=== PATIENT | male | born 1935 | race Caucasian/White ===

== ENCOUNTER 2016-04-23 05:16 | Day surgery (SDC) | payer MEDICARE ==
[~2016-04-23] VITALS: Ht 167.6 cm; Wt 92.5 kg
[2016-04-23] VITALS (17 sets, daily range): BP systolic 108–159; BP diastolic 61–92; PULSE 60–87; RESP 12–18; O2SAT 92–99
[~2016-04-23 05:16] MED LIST: ASPI-973 PO; CITA20TA PO; CYA1000I IM; GABA-502 PO; GLBR5T PO; LOSA50TA37 PO; LOVA10TA PO; Lactated Ringer's 1,000 ML IV SCH; METO-272 PO; MULT-1073 PO; POTA8CAP10 PO; PROP150T PO; TIOT18CA3 IH; VITA150T PO; WARF1TAB6 PO
[2016-04-23] MEDS ORDERED: fentaNYL-PF 50 mCg/mL 2 mL Inj ONE (05:17)
[2016-04-23] MEDS ORDERED: Rocuronium 10 mg/mL 5 mL Inj ONE (05:17)
[2016-04-23] MEDS ORDERED: Glycopyrrolate 0.2 mg/mL 5 mL Inj ONE (05:17)
[2016-04-23] MEDS ORDERED: Ketamine 10 mg/mL 20 mL Inj ONE (05:17)
[2016-04-23] MEDS ORDERED: Dexamethasone 4 mg/mL Inj ONE (05:17)
[2016-04-23] MEDS ORDERED: EPHEDrine/NS 5 mg/mL 5 mL Syringe ONE (05:17)
[2016-04-23] MEDS ORDERED: Ondansetron 2 mg/mL 2 mL Inj ONE (05:17)
[2016-04-23] MEDS ORDERED: Propofol 10,000 mCg/mL 20 mL Inj ONE (05:17)
[2016-04-23] MEDS ORDERED: Phenylephrine/NS 100 mCg/mL 10 mL Syringe IVPUSH ONE (05:17)
[2016-04-23] MEDS ORDERED: Neostigmine 1 mg/mL 5 mL Inj ONE (05:17)
[2016-04-23] MEDS ORDERED: Protamine Sulfate 10 mg/mL 5 mL Inj ONE ×2 (05:17→11:12)
[2016-04-23] MEDS ORDERED: Benzoc-Butamben-Tetraca Spray 20 Gm Spray TOPICAL PRN (06:30)
[2016-04-23 06:47] LABS: INR 2.62 ratio
[2016-04-23] MEDS ORDERED: FUR20 PO (06:58)
[2016-04-23] MEDS ORDERED: METO50TA3 PO (06:58)
[2016-04-23 07:01] LABS: BASOPHILS % (AUTO) 0.7 % (0-3); EOSINOPHILS % (AUTO) 3.7 % (0-5); MONOCYTES % (AUTO) 14.3 % (4-12); Mean Corpuscular Hemoglobin 29.8 pg (27.0-35.0); Mean Corpuscular Volume 87.6 fL (81-100); NEUTROPHILS % (AUTO) 46.7 % (40-74); Platelet Count 205 bil/L (150-400)
[2016-04-23] MEDS ORDERED: Heparin 1,000 Units/500 mL NS Premix IV ONE (07:42)
[2016-04-23] MEDS ORDERED: Heparin 1,000 Unit/mL 10 mL Inj ONE ×3 (07:42→09:32)
[2016-04-23] MEDS ORDERED: 0.9% Sodium Chloride 3,000 ML ONE (07:42)
--- NOTE | 2016-04-23 07:49 | PCM.HPANE ---
Patient Data Date of Service: Apr 23, 2016 Surgeon Admitting Provider: Attending Provider:Ariel Jenkins MD Primary Care Physician:Braeden Anderson Other Provider:aJycee Gomes Anesthesia Reason for Visit Paroxysmal Atrial Fibrillation Ht/WT & BMI Height (Feet): 5 Height (Inches): 6.00 Weight (Kilograms): 92.500 Body Mass Index 32.77 Allergies Coded Allergies: No Known Allergies (Verified Allergy, Mild, 02/29/16) Past Anesthesia History Anesthesia History: Denies:: Anesthesia Reactions Diabetes History Hx Diabetes?: Yes (type 2) MRSA MRSA: No Medications Hypertension Medication: Yes Home Meds Incl Beta Mirtha: Yes Date Beta Mirtha Taken: Apr 22, 2016 Time Beta Mirtha Taken: 18:00 Previous Beta Mirtha Dose >24: Previous Dose <24 Hours Reported Medications Metoprolol Tartrate 50 Mg Cupdde45 Mg PO BID 30 Days Ref 0 04/23/16 Furosemide 20 Mg Tab20 Mg PO DAILY 30 Days Ref 0 04/23/16 Warfarin Sodium 1 Mg Tablet1 Mg PO DAILY 30 Days Ref 0 04/22/16 Propafenone 150 Mg Idaesj797 Mg PO Q8H 02/29/16 Cyanocobalamin (Cyanocobalamin Injection)1,000 Mcg/1 Ml Vial1,000 Mcg IM Monthly takes the or of the month 02/28/16 Citalopram Hydrobromide (Celexa)20 Mg Dufexa42 Mg PO DAILY Ref 0 12/02/15 Vitamin B Complex & Vit C No.4 (Super B Complex)150 Mg Awchdu187 Mg PO DAILY 05/10/15 Aspirin 81 Mg Dtzapj69 Mg PO DAILY Ref 0 05/10/15 Tiotropium [place] (Spiriva)18 Mcg Cap.w.dev18 Mcg IH DAILY #1 PKG Ref 0 05/10/15 Gabapentin 300 Mg Ydxqqrs185 PO BID Ref 0 05/10/15 Losartan Potassium 50 Mg Mafnba86 Mg PO BID 05/10/15 Potassium Chloride 8 Meq Capsule.er8 Meq PO DAILY 30 Days Ref 0 TAKE WITH FOOD 12/28/13 Glyburide 5 Mg Tab2.5 Mg PO AM 30 Days Ref 0 12/28/13 Multivits-Min/FA/Lycopene/Lut (Centrum Silver Tablet)1 Each Tablet1 Each PO DAILY 12/27/13 Lovastatin 10 Mg Aqkozo14 Mg PO QPM #30 TABLET Ref 0 12/27/13 Discontinued Reported Medications Warfarin Sodium 1 Mg Tablet0.5 Mg PO thursday 30 Days Ref 0 04/22/16 Metoprolol Succinate ER 50 Mg Tab.er.24h75 Mg PO DAILY Ref 0 02/29/16 Warfarin Sodium 2 Mg Tablet2 Mg PO DAILY 30 Days Ref 0 02/29/16 History History of ENT Problems?: Yes HEENT History: Positive for:: Cataracts (cataract surgery) Denies:: Dysphagia Sinus Problem Hx of Heart Problems?: Yes Cardiovascular History: Positive for:: Hypertension Irregular Heartbeat (atrial fibrillation) Denies:: Cardiac Surgery (cardioversion) Chest Pain Congestive Heart Failure Edema Heart Murmur Pacemaker Thrombophlebitis Other Cardiac History: patient here today for PATRICIA/atrial fibrillation ablation with Dr Jenkins Other History/Comments Does not exercise much, sounds like he can do 4 mets; normal systolic fxn, negative lexiscan Hx of Respiratory Problem?: Yes Respiratory History: Positive for:: COPD Dyspnea (with atrial fibrillation) Denies:: Asthma Chest Surgery Emphysema Hemoptysis Pneumonia Tuberculosis Other History/Comment breathing well today, not on o2 Hx Neurologic Problems?: No Hx of GI Problems?: No Gastrointestinal History: Positive for:: Gastroesphageal Reflux Heartburn Denies:: Diverticulitis Gastrointestinal Bleeding Hepatitis Hiatal Hernia Rectal Bleeding Hx of Problems?: Yes Genitourinary History: Denies:: HX of Hemodialysis Kidney Stones Urinary Tract Infection HX of Peritoneal Dialysis: No Male Hx: Positive for:: Prostate Problems Denies:: Scrotal Mass Testicular Surgery Hx Musculoskeletal Problems?: Yes Musculoskeletal History: Positive for:: Back Injury Joint Replacement (R knee and R shoulder) Denies:: Musculoskeletal Trauma Hx of Psycho/Social Problems?: Yes Psycho Social History: Positive for:: Anxiety Denies:: Bipolar Disorder Hx Depression Suicide Attempt Hx Surgeries?: Yes (, cataracts, tonsillectomy, back, RIGHT KNEE, RIGHT SHOULDER) Hx Any Other Health Problems?: Yes Other History: Positive for:: Hospitalization (surgeries, COPD, ) Denies:: Cancer Endocrine Disease Thyroid Disease History Blood Transfusions: Positive for:: Accept Blood Products? Denies:: Blood Transfusions Hx Diabetes: Yes (type 2) Hx Alcohol Use: NoHx Substance Use: No Smoking Status: Former Smoker Have You Smoked inLast 12 mo: No Stop/Bang Treated for Sleep Apnea?: No Do You Have a CPAP Machine?: No S-Snoring: Do You Snore Loudly: Yes T-Tired: feel tired, fatigued: Yes O-Obsered: Observed not breath: No P-Blood Pressure: treated: Yes B- Body Mass Index > 35 kg/m2: No A- Age over 50: Yes N- Neck Large Circumference: Yes G- Gender Male: Yes JOSHUA Risk Assessment: High Risk, =/>3 Yes JOSHUA Category 2: Yes Risk Assessment Category Category 1A: Patient has history of documented sleep apnea, and HAS NOT received any narcotic, sedative or anesthesia administration during this stay. Category 1B: Patient has history of documented sleep apnea, and HAS received any narcotic , sedative or anesthesia administration during this stay Category 2: Patient has SUSPECTED Obstructive Sleep Apnea, and HAS received any narcotic , sedative or anesthesia administration during this stay. Category 3: Patient has SUSPECTED Obstructive Sleep Apnea and HAS NOT received narcotic, sedative or anesthesia administration during this stay. Category 4: Outpatient in Procedural Areas with known sleep apnea or who screen positive for High Risk via the STOP/BANG questionnaire. Exam Exam Vital Signs Vital Signs Date Time Temp Pulse Resp B/P Pulse Ox O2 Delivery O2 Flow Rate FiO2 04/23/16 06:43 36.7 66 15 125/75 99 Room Air General Appearance: Alert, Oriented X3, Cooperative, No Acute Distress HEENT/AIRWAY: MP 4, Neck Movement (full rom), Mouth Opening (small), Other ( thick neck) Lungs: Clear to Auscultation, Normal Air Movement Heart: Exam Unremarkable, Regular Rate/Rhythm, No Murmurs/Rubs/Gallops Meds/Labs/Diagnostics Labs Test 04/23/16 06:15 White Blood Count 6.0th/mm3 (3.8-10.1) Red Blood Count 5.33mil/mm3 (4.40-5.80) Hemoglobin 15.9g/dL (13.8-17.2) Hematocrit 46.7% (41.0-50.0) Mean Corpuscular Volume 87.6fL (81-100) Mean Corpuscular Hemoglobin 29.8pg (27.0-35.0) Mean Corpuscular Hemoglobin Concent 34.0% (32.0-37.0) Red Cell Distribution Width 13.6% (12.3-15.4) Platelet Count 205bil/L (150-400) Neutrophils (%) (Auto) 46.7% (40-74) Lymphocytes (%) (Auto) 34.3% (14-46) Monocytes (%) (Auto) 14.3% (4-12) Eosinophils (%) (Auto) 3.7% (0-5) Basophils (%) (Auto) 0.7% (0-3) Prothrombin Time 28.6sec (8.1-12.5) Prothromb Time International Ratio 2.62ratio Sodium Level 139mEq/L (134-144) Potassium Level 4.4mEq/L (3.5-5.2) Chloride Level 99mEq/L (97-108) Carbon Dioxide Level 25mmol/L (18-29) Blood Urea Nitrogen 18mg/dL (8-27) Creatinine 1.17mg/dL (0.76-1.27) Estimat Glomerular Filtration Rate 63mL/min (>59) Glucose Level 141mg/dL (60-99) Calcium Level 8.4mg/dL (8.5-10.1) Plan Impression Patient chart reviewed, patient interviewed and anesthestic plan with risks, benefits, and alternatives discussed, and informed consent obtained. NPO Status: >8 ASA Physical Status: ASA3 Severe Disease Anesthetic Support Modalities: Evart Scope, Arterial Line Anesthetic Plan: GA Bene/Risks/Altern/Consents: Yes HP Complete Prior to Induction: Yes Emir Jamison MD Apr 23, 2016 07:49
[2016-04-23] MEDS ORDERED: 0.9% Sodium Chloride 1,000 ML ONE ×2 (08:17→08:40)
[2016-04-23] MEDS ORDERED: Heparin 25,000 Unit/500 mL 0.45% NS Premix IV ONE (08:17)
[2016-04-23] MEDS ORDERED: HYDROcodone-APAP 5-325 mg Tablet PO PRN (11:25)
[2016-04-23] MEDS ORDERED: Ondansetron 2 mg/mL 2 mL Inj IVPUSH PRN (11:25)
--- NOTE | 2016-04-23 12:09 | DRSVH ---
[facility] [address] [place] [address] Echocardiogram Report Name: FLOYD HERNANDEZ te: 04/23/2016 [facility] Exam Location: [facility] Gender: Male : 1935 Age: 81 yrs BP: 177/111 mmHg Reason For Study: Atrial fibrillation Ordering Physician: Performed By: Lucille Hutchins Interpretation Summary No thrombus is detected in the left atrial appendage. There was a prominant ridge if atrial tissue at the midpoint of the NORMA that was carefully evaluated. This was not thought to be a thrombus and the prior CT scan of the LA showed a similar ridge of tissue correlating well the the PATRICIA. The thickening of interatrial septum suggests lipomatous hypertrophy. There is mild mitral regurgitation. Mild atherosclerotic plaque(s) in the descending aorta. Mild atherosclerotic plaque(s) in the aortic arch. No other echocardiographic abnormalities seen. Procedure: Informed consent for Transesophageal Echocardiogram, and use of a contrast agent as needed, was obtained prior to the procedure. The patient was brought to the cardiac catheterization lab in a fasting state. Sedation was managed by anesthesiologist; see anesthesiology notes for details. A multifrequency, multiplane transesopheageal echocardiographic endoscope was inserted and manipulated in the standard fashion to achieve multiplane views. The transesophageal probe was passed without difficulty. The patient's vital signs, including blood pressure, heart rate, pulse oximetry and cardiac rhythm were monitored throughout the procedure and remained stable. A 2D transesophageal echocardiogram with spectral and color flow Doppler was performed. There were no complications. Left Ventricle: The left ventricle is grossly normal size. Left ventricular systolic function is probably normal. Right Ventricle: The right ventricle is grossly normal size. The right ventricular systolic function is normal. Atria: No thrombus is detected in the left atrial appendage. The left atrial size is normal. There was a prominant ridge if atrial tissue at the midpoint of the NORMA that was carefully evaluated. This was not thought to be a thrombus and the prior CT scan of the LA showed a similar ridge of tissue correlating well the the PATRICIA. The right atrium is normal in size. The thickening of interatrial septum suggests lipomatous hypertrophy. Mitral Valve: There is mild mitral regurgitation. Aortic Valve: The aortic valve is trileaflet. The aortic valve opens well. The aortic valve is normal in structure and function. Tricuspid Valve: The tricuspid valve is not well visualized, but is grossly normal. Pulmonic Valve: The pulmonic valve is not well visualized. Great Vessels: Mild atherosclerotic plaque(s) in the descending aorta. Mild atherosclerotic plaque(s) in the aortic arch. Pericardium/ Pleura: There is no pericardial effusion. Reading Physician:12:08 PM
--- NOTE | 2016-04-23 14:14 | PROCED ---
[address] [address] PROCEDURE NOTE PATIENT: FLOYD HERNANDEZ : 1935 MR#: [id number] ADMIT: 04/23/2016 JOB ID: [id number] DATE OF SERVICE: 04/23/2016 PREOPERATIVE DIAGNOSIS(ES): Paroxysmal drug refractory atrial fibrillation. POSTOPERATIVE DIAGNOSIS(ES): Paroxysmal drug refractory atrial fibrillation. PROCEDURES PERFORMED: 1. Comprehensive electrophysiology study. 2. Three-dimensional electroanatomical mapping using the CARTO 3 system. 3. Atrial fibrillation ablation with pulmonary vein isolation. 4. Transseptal puncture x2. 5. Intracardiac echocardiography. 6. Barium esophagram. 7. Cardioversion. 8. Fluoroscopy. SURGEON: Ariel Jenkins MD, electrophysiology attending. ASSISTANTS: Haresh Steele, Brooke Burch, Eladio Queen PA-C. ANESTHESIA: General endotracheal anesthesia was undertaken for this case. INDICATION: The patient is a pleasant 81-year-old man with highly symptomatic paroxysmal drug refractory atrial fibrillation. After discussion of risks and benefits of catheter-based mapping and ablation, he opted to proceed. PROCEDURAL DESCRIPTION: Following informed signed consent, the patient was taken to the procedure room in a fasting, nonsedated state, where he was prepped and draped in the usual sterile fashion. He underwent a preprocedural transesophageal echocardiogram by Dr. Mckeon, confirming lack of intracardiac thrombus. Please see separate dictated report for the details of that procedure. The bilateral groins were then infiltrated with 1% lidocaine. Then, using modified Seldinger technique, two 8-Iraqi sheaths were inserted into the right femoral vein. A 7 and a 10.5-Iraqi sheath were inserted into the left femoral vein. Under fluoroscopic guidance, a deflectable decapolar catheter was advanced in the coronary sinus with the most proximal pole at the os of the sinus. An intracardiac echocardiography probe was advanced to the RV outflow tract and used to visualize the pericardial space. A trivial physiologic effusion was noted. The ICE probe was pulled back into the right atrium and used to visualize the interatrial septum in assistance of transseptal puncture. Two transseptal punctures were performed in an identical fashion, each with a short 8-Iraqi sheath in the right groin which were exchanged over a long wire for a Nunez sheath dilator and Cornelius Brockenbrough needle. The entire system was used to engage thee interatrial septum. Then, under pressure fluoroscopic and ICE guidance, the septum was traversed twice to deploy the two Nunez sheaths into the left atrium. Following with first and preceding with second transseptal puncture, the patient was heparinized for a goal ACT of 350 to 400 seconds. A resurvey of the pericardial space showed no evidence of change in the trivial effusion. Through the two Nunez sheaths an F-curve irrigated SmartTouch ablation catheter was advanced, as was a 20-pole PentaRay catheter. The three-dimensional electroanatomical map of the left atrium and pulmonary veins was created using CARTO 3 system. The patient has a common left pulmonary vein ostium and two separate ostia for the right-sided pulmonary veins. A barium esophagram was performed delineating the course of the esophagus closest to the posterior aspect of the left pulmonary common vein. Circumferential lesions were placed around the ostia of the veins achieving entrance and exit blocks in all pulmonary veins. Following entrance block into the left pulmonary vein, the patient was cardioverted with a 200 joule synchronized shock to convert him to sinus rhythm. Exit block was confirmed from that vein. Entrance and exit blocks were confirmed from the two right-sided veins. We then left the left atrium, re-surveyed the pericardial space showing no evidence of change in the tiny effusion and reversed the patient's heparin with protamine. During the course of this study, we did complete a comprehensive electrophysiology study with right atrial pacing recording, right ventricular pacing recording, His bundle pacing recording and left atrial pacing recording. All catheters and sheaths were removed. Manual pressure was held for hemostasis. The patient was transferred to the [facility] for monitoring and bedrest. COMPLICATIONS: None. ESTIMATED BLOOD LOSS: 20-30 cc. FINDINGS: 1. Baseline rhythm is atrial fibrillation. Post cardioversion and ablation, he is in sinus rhythm with a RR interval 1042 msec, NV 199 msec, QRS 82 msec, QTc 453 msec. 2. Intracardiac intervals, atrial 103 msec, HV 52 msec. 3. Retrograde conduction, no VA conduction was seen. 4. Antegrade conduction, AV Wenckebach at 410 msec. 5. Atrial fibrillation ablation with pulmonary vein isolation showing entrance and exit blocks as described above. IMPRESSION: Successful pulmonary vein isolation procedure for paroxysmal drug refractory atrial fibrillation. PLAN: 1. Bedrest x4 hours. 2. Continue warfarin, beta blockade and propafenone. 3. Protonix 40 mg p.o. daily for 1 month. 4. Monitoring overnight. 5. Follow up with Eladio Queen PA-C in 3-4 weeks. 6. Follow up with me in three months. ATTENDING STATEMENT: Ariel Jenkins MD, electrophysiology attending, was present for and supervised/performed all aspects of this procedure.
--- NOTE | 2016-04-23 15:58 | PCM.ANEP1 ---
Post Anesthesia Phase 1 PACU Phase 1 Assessment Date of Service: Apr 23, 2016 Vital Signs Vital Signs Date Time Temp Pulse Resp B/P Pulse Ox O2 Delivery O2 Flow Rate FiO2 04/23/16 15:30 69 18 144/79 Room Air 04/23/16 14:25 65 13 112/76 92 Room Air 04/23/16 13:30 63 15 120/65 94 Nasal Cannula 3.00 04/23/16 13:15 63 16 112/65 93 Nasal Cannula 3.00 04/23/16 12:58 63 13 118/61 92 Nasal Cannula 4.00 04/23/16 12:45 63 12 108/69 92 Nasal Cannula 4.00 04/23/16 12:35 64 15 94 Nasal Cannula 4.00 04/23/16 12:30 64 15 119/67 94 Nasal Cannula 5.00 04/23/16 12:25 64 15 124/81 93 Oxy Mask 6.00 04/23/16 12:20 64 15 124/81 93 Oxy Mask 6.00 04/23/16 12:08 67 13 134/81 93 Oxy Mask 6.00 Anesthetic Administered: GA Level of Alertness: Awake, talking SNYDER's with Equal Strength: Yes Pain: No Nausea or Vomiting: No Oxygen Delivery: OxyMask Lungs: Clear to Auscultation, Normal Air Movement Emir Jamison MD Apr 23, 2016 15:58
--- NOTE | 2016-04-23 15:59 | PCM.ANEP2 ---
Post Anesthesia Evaluation ASA/CMS Post Anesthesia Date of Service: Apr 23, 2016 VS in Patient's Normal Range?: Yes Resp Stable; Airway Patent?: Yes CV Function & Hydration Stable: Yes Mental Status Recovered?: Yes Pain control Satisfactory?: Yes N/V Control Satisfactory?: Yes Emir Jamison MD Apr 23, 2016 15:59
--- NOTE | 2016-04-23 16:07 | NUR ---
Patent's bunch catheter removed as patient is now off bedrest.Pt assissted immediately to bathroom for void.Bilateral groin sites intyact.Patient unable to void in bathrooom but states that he is comfortable, does not have the continued urge to void.
--- NOTE | 2016-04-23 16:23 | NUR ---
report to Lizbeth Orr R.N, Patient is sitting up on side of bed.Bilateral groin sites intact, he remains in sinus rhythm.Patient informed that his next few voids may be blood tinged as there was some blood noted at the tip of the bunch catheter and at meatus upon removing.
--- NOTE | 2016-04-23 18:13 | PCM.CONPHA ---
Subjective Date of Service: Apr 23, 2016 Requesting Provider: Ariel Jenkins MD Reason for Pharmacy Consult: Anticoagulation Management Objective Vital Signs Date Time Temp Pulse Resp B/P Pulse Ox O2 Delivery O2 Flow Rate FiO2 04/23/16 16:49 80 04/23/16 16:38 36.6 69 16 158/80 94 Room Air 04/23/16 16:13 69 12 135/69 96 Room Air 04/23/16 15:58 OxyMask 04/23/16 15:30 69 18 144/79 Room Air 04/23/16 14:25 65 13 112/76 92 Room Air 04/23/16 13:30 63 15 120/65 94 Nasal Cannula 3.00 04/23/16 13:15 63 16 112/65 93 Nasal Cannula 3.00 04/23/16 12:58 63 13 118/61 92 Nasal Cannula 4.00 04/23/16 12:45 63 12 108/69 92 Nasal Cannula 4.00 04/23/16 12:35 64 15 94 Nasal Cannula 4.00 04/23/16 12:30 64 15 119/67 94 Nasal Cannula 5.00 04/23/16 12:25 64 15 124/81 93 Oxy Mask 6.00 04/23/16 12:20 64 15 124/81 93 Oxy Mask 6.00 04/23/16 12:08 67 13 134/81 93 Oxy Mask 6.00 04/23/16 06:43 36.7 66 15 125/75 99 Room Air Weight (Kilograms): 92.500 Height (Feet): 5 Height (Inches): 6.00 Test 04/23/16 06:15 White Blood Count 6.0th/mm3 (3.8-10.1) Red Blood Count 5.33mil/mm3 (4.40-5.80) Hemoglobin 15.9g/dL (13.8-17.2) Hematocrit 46.7% (41.0-50.0) Mean Corpuscular Volume 87.6fL (81-100) Mean Corpuscular Hemoglobin 29.8pg (27.0-35.0) Mean Corpuscular Hemoglobin Concent 34.0% (32.0-37.0) Red Cell Distribution Width 13.6% (12.3-15.4) Platelet Count 205bil/L (150-400) Neutrophils (%) (Auto) 46.7% (40-74) Lymphocytes (%) (Auto) 34.3% (14-46) Monocytes (%) (Auto) 14.3% (4-12) Eosinophils (%) (Auto) 3.7% (0-5) Basophils (%) (Auto) 0.7% (0-3) Prothrombin Time 28.6sec (8.1-12.5) Prothromb Time International Ratio 2.62ratio Sodium Level 139mEq/L (134-144) Potassium Level 4.4mEq/L (3.5-5.2) Chloride Level 99mEq/L (97-108) Carbon Dioxide Level 25mmol/L (18-29) Blood Urea Nitrogen 18mg/dL (8-27) Creatinine 1.17mg/dL (0.76-1.27) Estimat Glomerular Filtration Rate 63mL/min (>59) Glucose Level 141mg/dL (60-99) Calcium Level 8.4mg/dL (8.5-10.1) Assessment/Plan Assessment/Plan PREOPERATIVE DIAGNOSIS(ES): Paroxysmal drug refractory atrial fibrillation. POSTOPERATIVE DIAGNOSIS(ES): Paroxysmal drug refractory atrial fibrillation. PROCEDURES PERFORMED: 1. Comprehensive electrophysiology study. 2. Three-dimensional electroanatomical mapping using the CARTO 3 system. 3. Atrial fibrillation ablation with pulmonary vein isolation. 4. Transseptal puncture x2. 5. Intracardiac echocardiography. 6. Barium esophagram. 7. Cardioversion. 8. Fluoroscopy. Warfarin dosing per pharmacy Indication for warfarin therapy: atrial fibrillation INR goal: 2-3 Home dose: warfarin 1 mg daily per med rec. INR today: 2.62 INR is therapeutic today. Give home dose of warfarin 1 mg PO once this evening. Pharmacy to continue to monitor and dose warfarin daily. Thank you, Jimena Navarro Pharmacist Jimena Navarro Apr 23, 2016 18:13
[2016-04-24 03:49] VITALS: BP 146/79; PULSE 80; RESP 18; O2SAT 93
[2016-04-24 04:16] LABS: APPEARANCE,URINE CLOUDY (CLEAR,HAZY); COLOR,URINE YELLOW (YELLOW); OCCULT BLOOD,URINE LARGE (NEGATIVE)
[2016-04-24 04:17] LABS: UROBILINOGEN,URINE NORMAL (NORMAL)
--- NOTE | 2016-04-24 05:07 | NUR ---
Groin Sites Bilateral groin sites C/D/I to assessment; slight bruising to areas, nontender to palpation, no hematoma formation. Bandaids intact. Pt denies pain, dyspnea, or nausea. Encouraged to call for assistance upon first ambulation, pt states "I haven't gotten up at all yet, but I'm always really careful when I do. I stand at the edge of the bed for a couple minutes until I'm steady, because I know I can get dizzy. But I'm feeling a lot better after this procedure." VSS. Tele SR 70s.
[2016-04-24 06:06] VITALS: PULSE 73
[2016-04-24] MEDS ORDERED: Pantoprazole 40 mg ER24 Tablet PO SCH (06:30)
[2016-04-24 08:00] VITALS: PULSE 68
[2016-04-24] MEDS ORDERED: Tiotropium 18mcg/Cap 5 Capsule Inhaler Kit INHALATION SCH (08:30)
[2016-04-24] MEDS ORDERED: Vitamin B Complex/Vit C Tablet PO SCH (08:30)
--- NOTE | 2016-04-24 08:37 | PCM.DIMED ---
Discharge Instructions Date of Service Apr 24, 2016 Dates of Hospitalization Discharge Diagnosis Discharge Diagnosis Paroxysmal Atrial fibrillation Diabetes Hypertension COPD Diet Diabetic Activity Other (To prevent bleeding, do not lift, push or pull more than 10 lbs for 5 days. To prevent infection, do not sit in a bath tub, hot tub or pool for 5 days.) Call your provider Fever or Chills, Bleeding, Excessive diarrhea, Weakness (unilateral) Patient Instructions Mid-level Provider (F9): Eladio Queen PA-C Follow-up with Mid-level in: 4 weeks Eladio Queen PA-C Apr 24, 2016 08:37
[2016-04-24] MEDS ORDERED: PANT40TA3 PO (08:47)
[2016-04-24 09:31] VITALS: BP 149/84; PULSE 66; RESP 16; O2SAT 96
--- NOTE | 2016-04-24 09:41 | DIS ---
[address] [address] DISCHARGE SUMMARY PATIENT: FLOYD HERNANDEZ : 1935 MR#: [id number] ADMIT: 04/23/2016 JOB ID: [id number] DIS: 04/24/2016 REASON FOR ADMISSION: Atrial fibrillation ablation. CHIEF COMPLAINT: Extreme fatigue and dyspnea with minimal exertion. BRIEF HISTORY: The patient is a pleasant 80-year-old man with preserved biventricular function and no significant mitral valve regurgitation but who has some systemic hypertension, diabetes and persistent atrial fibrillation. He was started on warfarin for anticoagulation and propafenone for antiarrhythmic and underwent a cardioversion but reverted to atrial fibrillation. He was again extremely fatigued and somnolent during the day and had exertional dyspnea with minimal activity when in atrial fibrillation. He was admitted for an ablation procedure. COURSE IN HOSPITAL: The patient was admitted through the [facility] and taken to the concrete plant laborer, where he was first placed under general anesthesia by the anesthesiologist. He then had a PATRICIA which showed no evidence of left atrial thrombus and then the atrial fibrillation ablation procedure was undertaken and completed without incident. After the femoral sheaths were removed, he was awakened from anesthesia and then transferred back to the [facility] for recovery from sedation. After that he was transferred up to the [facility] for continuous telemetry and overnight care. The Pina catheter was removed and he was able to void his bladder. He did well overnight and in the morning was in sinus rhythm and feeling well. He reports being so much more awake when in sinus rhythm. He has no chest discomfort, no dyspnea and no instability on standing. The groin sites were closed and dry and there was minimal hematoma or ecchymosis on either side. DISPOSITION: The patient was discharged home in good condition with a follow up appointment at the [facility] office in one month. To prevent bleeding, he was asked not to lift, push or pull more than 10 pounds for five days and to prevent infection he was asked not to sit in a bathtub, hot tub or pool for five days. He will follow his diabetic diet and take medications as prescribed. DISCHARGE MEDICATIONS: 1. Pantoprazole 40 mg daily for one month only. 2. Aspirin 81 mg daily. 3. Celexa 20 mg daily. 4. Cyanocobalamin 1000 mcg IM monthly. 5. Furosemide 20 mg daily. 6. Gabapentin 600 mg b.i.d. 7. Glyburide 2.5 mg each a.m. 8. Losartan 50 mg b.i.d. 9. Lovastatin 10 mg q. p.m. 10. Metoprolol tartrate 50 mg b.i.d. 11. Multivitamin (Centrum Silver) 1 daily. 12. Potassium chloride 8 mEq daily. 13. Propafenone 150 mg t.i.d. p.o. 14. Tiotropium bromide 18 mcg inhaler. 15. Vitamin B and vitamin C 150 mg tablet daily. 16. Warfarin 1 mg daily. FINAL DIAGNOSES: 1. Paroxysmal and persistent atrial fibrillation. 2. Exertional dyspnea and marked fatigue. 3. Hypertension. 4. Diabetes.
--- NOTE | 2016-04-24 11:57 | NUR ---
Discharge PT left with at 1115. A&Ox3 and walked out to private car. Bilateral groin sites soft and non tender, slight bruising. All discharge instructions gone over and understood, new prescription sent to [facility] via [facility], information given. All questions answered. IV x2 removed along with tele. All belongings taken with.
== END 2016-04-24 11:25 | disposition home or self-care (01) ==
LOC: SOUO 05:16 → PCC 16:06 → SOUO 04-24 11:25
PROVIDERS: ATTEND Internal Medicine Cardiovascular Disease
DX: I48.0 Paroxysmal atrial fibrillation (principal); Z79.01 Long term (current) use of anticoagulants; I10 Essential (primary) hypertension; E11.9 Type 2 diabetes mellitus without complications; Z79.899 Other long term (current) drug therapy; I48.1 Persistent atrial fibrillation; Z79.84 Long term (current) use of oral hypoglycemic drugs; J44.9 Chronic obstructive pulmonary disease, unspecified; M10.9 Gout, unspecified; N40.0 Benign prostatic hyperplasia without lower urinary tract symptoms; Z79.82 Long term (current) use of aspirin
CPT/HCPCS: 36415; 80048; 81000; 85025; 85610; 93005; 93613; 93656; 93662; C1730; C1732; C1759; C1769; C1894; C8925; J1100; J1644; J2370; J2405; J2710; J2720; J3010; J7030; J7040

== ENCOUNTER 2016-09-05 19:51 | Emergency (ER) | payer MEDICARE ==
[~2016-09-05] VITALS: Ht 165.1 cm; Wt 95.0 kg
[~2016-09-05 19:51] MED LIST changes: +FUR20 PO; -Lactated Ringer's 1,000 ML IV SCH; -METO-272 PO; +METO50TA3 PO; +PANT40TA3 PO
[2016-09-05 19:59] VITALS: BP 156/79; PULSE 65; RESP 14; O2SAT 98
--- NOTE | 2016-09-05 20:07 | ED.REPORT ---
HPI-Extremity Problem Lower Date of Service Sep 05, 2016 ED Provider: Flakito Negron MD Patient is an 81 year old male with a history of diabetes who presents to the ED complaining of a left leg laceration onset 2 days ago. The patient states that he dropped a glass on the ground and a piece of it cut his leg. He states that he is having pain in his leg. Nursing Notes Stated Complaint: LEFT LEG CUT Chief Complaint: Laceration Nursing Notes Reviewed: Yes Allergies: Coded Allergies: No Known Allergies (Verified Allergy, Mild, 09/05/16) Scheduled Aspirin (Aspirin) 81 Mg Tablet 81 MG PO DAILY Citalopram Hydrobromide (Celexa) 20 Mg Tablet 20 MG PO DAILY Cyanocobalamin (Cyanocobalamin Injection) 1,000 Mcg/1 Ml Vial 1,000 MCG IM Monthly takes the or of the Furosemide (Furosemide) 20 Mg Tab 20 MG PO DAILY Gabapentin (Gabapentin) 300 Mg Capsule 600 PO BID Glyburide (Glyburide) 5 Mg Tab 2.5 MG PO AM Losartan Potassium (Losartan Potassium) 50 Mg Tablet 50 MG PO BID Lovastatin (Lovastatin) 10 Mg Tablet 10 MG PO QPM Metoprolol Tartrate (Metoprolol Tartrate) 50 Mg Tablet 50 MG PO BID Multivits-Min/FA/Lycopene/Lut (Centrum Silver Tablet) 1 Each Tablet 1 EACH PO DAILY Pantoprazole DR (Pantoprazole DR) 40 Mg Tablet.dr 40 MG PO 0630 Potassium Chloride (Potassium Chloride) 8 Meq Capsule.er 8 MEQ PO DAILY TAKE WITH FOOD Propafenone (Propafenone) 150 Mg Tablet 150 MG PO Q8H Tiotropium [place] (Spiriva) 18 Mcg Cap.w.dev 18 MCG IH DAILY Vitamin B Complex & Vit C No.4 (Super B Complex) 150 Mg Tablet 150 MG PO DAILY Warfarin Sodium (Warfarin Sodium) 1 Mg Tablet 1 MG PO DAILY General Time Seen by MD: 20:07 Chief Complaint Leg injury left Hx Obtained From: Patient Arrived By: Walk-in Onset Occurred: 2 days ago Symptom Duration: Since onset Caused by: Accidental Location: : Leg left Recent Healthcare: No recent hospitalization, Recent doctor visit Similar Sx Previous: No Past Medical History Past Medical History Notes: Pelvis MRI 05/07 - [facility], ?rectal abnormality Past Medical History Chronic back pain - spinal stenosis heartburn arthritis anxiety Reports: COPD, Diabetes mellitus, Hyperlipidemia, Hypertension Past Surgical History Right knee and right shoulder replacement Back surgery cataracts Reports: Tonsillectomy Family History noncontributory Smoking History Former Smoker Social History Drug Use: Denies drug use Other Social History: Good social support, , Local resident Ambulatory Status Cane Review of Systems Constitutional: Denies: Chills, Fever Musculoskeletal: Reports: Extremity pain Skin: Denies Itching, Denies Rash Complete sys rev & neg: except as marked. Respiratory: Denies: Non-productive cough, Shortness of breath Physical Exam Initial Vital Signs Vital Signs (First) Date Time Temp Pulse Resp B/P Pulse Ox O2 Delivery O2 Flow Rate FiO2 09/05/16 19:59 36.2 65 14 156/79 98 Room Air Initial VS: Reviewed LOWER EXTREMITIES: 3cm laceration to the left lower extremity about the anterior varela extends into the subcutaneous tissue no purulent drainage no fluctuance no signs of infection good dp and tp good cap refill to toes Ankle / Foot: Atraumatic, Full range of motion General/Constitutional: Awake, Alert, No acute distress Respiratory / Chest: Atraumatic, Breath sounds NL, Breath sounds = bilat, No respiratory distress Cardiovascular: Heart rate NL, Regular rhythm, Heart sounds NL, No gallop, No murmurs, No rubs Skin: Atraumatic, Color NL, No rash, Warm, Dry Neurologic: Oriented X3, Speech NL, No motor deficits, No sensory deficits Head / Eyes: Atraumatic, Normocephalic, PERRL, EOMI Psychiatric: Affect NL, Mood NL Re-Eval/Medical Decision Med Decision/Clinical Course Patient is an 81 year old male with a history of diabetes who presents to the ED complaining of a left leg laceration onset 2 days ago. The patient states that he dropped a glass on the ground and a piece of it cut his leg. He states that he is having pain in his leg. Examination reveals laceration as described above. This is relatively superficial. There is no evidence of foreign body. There is no evidence of neurovascular injury. He is neurovascularly intact in the distal extremity. The laceration does not extend beyond the cutaneous layer. Given the age of the laceration I did not feel that sutures are indicated. The wound margins are well approximated and there is no active bleeding although he is on Coumadin. Wound was copiously irrigated and sterile dressings were placed. There is no evidence of infection at this time. I do not feel that antibiotics are warranted. The patient is appropriate for discharge. Prior to discharge follow-up and return precautions were reviewed in detail with the patient who verbalized understanding and agreement with the plan. The patient was discharged in stable condition. Re-Evaluation/Progress : Time of Eval: 20:34 Re-Evaluation/Progress Note: Discussed plan for discharge. patient understands and agrees to plan. All questions were addressed. Counseled Regarding: Diagnosis, Need for follow-up, When/why to return to ED Discharge & Departure Impression: Primary Impression: Laceration Additional Impression: Anticoagulated on Coumadin Disposition: Home Discharge Condition All VS Reviewed: Yes Condition: Stable Patient Instructions: Laceration (DC) Additional Instructions: Thank you for seeking care at the emergency room. Our primary goal today in the ED was to evaluate you for any life-threatening conditions. Your evaluation was reassuring. Your laceration showed no signs of infection and does not need stitches. You should return to the ED immediately if you develop fever, signs of infection including redness, pus drainage or increasing pain or any other concerning signs or symptoms. Thank you for letting us partake in your care today. Referrals: Eber Escalante DO (PCP) [place] Attestation Portions of this note were transcribed by Roopa Han. I, Dr. Negron personally performed the history, physical exam and medical decision-making; I reviewed and confirmed the accuracy of the information in the transcribed note. Signed by: Azalia Matthews, 09/05/16 and 2034 copies to: Eber Escalante Beck O MD Sep 05, 2016 20:07 Annmarie Han Sep 05, 2016 20:09
== END 2016-09-05 20:55 | disposition home or self-care (01) ==
LOC: SED 19:51
DX: S81.812A Laceration without foreign body, left lower leg, initial encounter (principal); W25.XXXA Contact with sharp glass, initial encounter; Y93.89 Activity, other specified; Y92.89 Other specified places as the place of occurrence of the external cause; Y99.8 Other external cause status; I10 Essential (primary) hypertension; E78.5 Hyperlipidemia, unspecified; J44.9 Chronic obstructive pulmonary disease, unspecified; E11.9 Type 2 diabetes mellitus without complications; F41.9 Anxiety disorder, unspecified; Z79.82 Long term (current) use of aspirin; Z79.01 Long term (current) use of anticoagulants; Z87.891 Personal history of nicotine dependence